=== PATIENT | female | born 1975 | race Caucasian/White ===

== ENCOUNTER 2018-06-15 09:43 | Day surgery (SDC) | payer BC ==
[2018-06-13 16:43] LABS: CLARITY,URINE CLEAR (Clear); COLOR,URINE YELLOW (Yellow); GLUCOSE, URINE NEGATIVE (Neg); KETONES,URINE NEGATIVE (Neg); LEUKOCYTE ESTERASE ,URINE NEGATIVE (Neg); NITRITES, URINE NEGATIVE (Neg); OCCULT BLOOD,URINE TRACE-LYSED (Neg); PH,URINE 6.5 (4.8-8.0); PROTEIN,URINE NEGATIVE (Neg); UROBILINOGEN,URINE 0.2 E.U/dL (0.2-1.0)
[2018-06-13 16:49] LABS: HEMOGLOBIN A1C 7.2 % (4.5-6.2)
[2018-06-13 16:57] LABS: ALBUMIN 3.8 G/DL (3.4-5.0); ALBUMIN/GLOBULIN RATIO 1.2 (1.1-1.5); ALKALINE PHOSPHATASE 128 IU/L (46-116); BLOOD UREA NITROGEN 10 MG/DL (7-18); BUN/CREATININE RATIO 14.3 (6.6-38.0); CALCIUM 9.7 MG/DL (8.5-10.1); CHLORIDE 102 MMOL/L (99-107); PRE OP ALT 43 U/L (30-65); PRE OP ANION GAP 9 (8-16); PRE OP AST 19 U/L (10-37); PRE OP BILIRUB, TOTAL 0.2 MG/DL (0.0-1.0); PRE OP GLUCOSE 163 MG/DL (70-104); PRE OP POTASSIUM 3.7 MMOL/L (3.4-5.1); PRE OP SODIUM 140 MMOL/L (135-145); TOTAL CARBON DIOXIDE 28.6 MMOL/L (24-32); eGFR > 90 ML/MIN
[2018-06-13 17:04] LABS: UA COLLECTION TYPE CLN CATCH MIDSTREAM
[2018-06-13 17:04] LABS: PRE OP PROTIME 10.1 SECONDS (9.0-12.0)
[2018-06-13 17:05] LABS: BACTERIA,URINE 1+ /HPF (Neg); RBC,URINE 0-2 /HPF (0-2); SQUAMOUS EPITHELIAL CELL,UR MANY /LPF (FEW); WBC,URINE 0-4 /HPF (0-4)
[2018-06-13 17:26] LABS: HCG SERUM QL NEGATIVE
[2018-06-14 07:36] LABS: BASOPHILS # (AUTO) 0.1 X10'3 (0-0.2); BASOPHILS % (AUTO) 0.5 % (0-1); EOSINOPHILS # (AUTO) 0.3 X10'3 (0-0.9); EOSINOPHILS % (AUTO) 2.5 % (0-6); LYMPHOCYTES # (AUTO) 3.8 X10'3 (1.1-4.8); LYMPHOCYTES % (AUTO) 31.2 % (21-51); MEAN CORPUSCULAR HEMOGLOBIN 28.5 PG (27.0-31.0); MEAN CORPUSCULAR VOLUME 86.3 FL (78-98); MEAN PLATELET VOLUME 9.5 FL (7.4-10.4); MONOCYTES # (AUTO) 0.6 X10'3 (0-0.9); MONOCYTES % (AUTO) 4.7 % (2-12); NEUTROPHILS # (AUTO) 7.4 X10'3 (1.8-7.7); NEUTROPHILS % (AUTO) 61.1 % (42-75); PRE OP HEMATOCRIT 40.1 % (35.0-45.0); PRE OP HEMOGLOBIN 13.2 g/dL (12.0-16.0); PRE OP PLATELET COUNT 307 X10'3 (140-440); RED BLOOD COUNT 4.65 X10'6 (4.20-5.60); RED CELL DISTRIBUTION WIDTH 14.6 % (11.5-14.5)
[~2018-06-15] VITALS: Ht 162.6 cm; Wt 100.6 kg
[2018-06-15] VITALS (18 sets, daily range): BP systolic 129–160; BP diastolic 70–94
[~2018-06-15 09:43] MED LIST: CYCL-1 PO; HYDR-3964 PO; IBUP-1985 PO; METF-950 PO; ROPI1TAB4 PO; SUMA100T16 PO; ceFOXitin 2 GM ADDVANTGE BAG 50 ML IV ONE; famotidine 20mg tablet PO ONE
[2018-06-15] MEDS ORDERED: ringers solution, lacted 1,000 ML IV SCH ×2 (10:04→13:51)
[2018-06-15] MEDS ORDERED: morphine 4 MG/ML inj SYRINge IV PRN ×4 (10:05→13:55)
[2018-06-15] MEDS ORDERED: ondansetron/PF 4mg/2ml inj IV PRN ×3 (10:05→14:55)
[2018-06-15] MEDS ORDERED: meperidine/PF 25mg/ml syringe IV PRN ×6 (10:05→13:55)
[2018-06-15] MEDS ORDERED: proCHLORperazine 10 MG/2 ml inj IV PRN ×2 (10:05→13:55)
[2018-06-15] MEDS: ringers solution, lacted 1,000 ML IV SCH ×4 (10:18→20:11)
[2018-06-15] MEDS ORDERED: epiNEPHrine 1 mg/ml inj ONE (11:53)
[2018-06-15] MEDS ORDERED: clindamycin phosphate 40gm vag cream ONE (11:53)
[2018-06-15] MEDS ORDERED: BUPIVAcaine/PF 2.5mg/ml (0.25%) 10ml vial ONE ×2 (11:54)
[2018-06-15] MEDS ORDERED: vasoPRESSIN 20 units/ml inj. ONE (11:54)
[2018-06-15] MEDS ORDERED: neomy sulf/polymyxin B sulf. GU irrigation 1ml amp IR ONE (11:54)
[2018-06-15] MEDS ORDERED: sevoflurane 250ml liquid IH ONE (13:11)
[2018-06-15] MEDS ORDERED: midazolam 2 mg/2 ml injection ONE (13:15)
[2018-06-15] MEDS ORDERED: fentaNYL /PF 50mcg/ml 5ml ampule ONE (13:15)
[2018-06-15] MEDS ORDERED: propofol inj 20 ML IV ONE (13:24)
[2018-06-15] MEDS ORDERED: rocuronium 10mg/ml inj IV ONE (13:24)
[2018-06-15] MEDS ORDERED: ketamine 50mg/5ml syringe ONE (13:30)
[2018-06-15] MEDS ORDERED: neostigmine methylsulfate 1 MG/ML 10ml vial ONE (14:37)
[2018-06-15] MEDS ORDERED: glycopyrrolate 0.2mg/ml inj ONE (14:37)
[2018-06-15] MEDS ORDERED: HYDROcodone/acetaminophen 10/325mg tab PO PRN (14:55)
[2018-06-15] MEDS ORDERED: temazepam 15mg capsule PO PRN (14:55)
[2018-06-15] MEDS ORDERED: normal saline 500ml IV soln 500 ML IV PRN (14:55)
[2018-06-15] MEDS ORDERED: metoclopramide 5 mg/ml inj IV PRN (14:55)
[2018-06-15] MEDS ORDERED: diphenhydrAMINE 50 mg/ml inj IV PRN (14:55)
[2018-06-15] MEDS ORDERED: LORazepam 2 mg/ml vial IV PRN (14:55)
[2018-06-15] MEDS ORDERED: magnesium hydroxide 30ml (MOM) UD suspension PO PRN (14:55)
[2018-06-15] MEDS ORDERED: HYDROcodone/acetaminophen 5mg/325mg tablet PO PRN (16:05)
[2018-06-15] MEDS ORDERED: ibuprofen 200mg tablet PO PRN (16:05)
[2018-06-15] MEDS ORDERED: SUMAtriptan 25 MG tablet PO PRN (16:05)
[2018-06-15] MEDS: docusate sod 100mg capsule PO SCH (20:08)
[2018-06-15] MEDS: metFORMIN 500mg tablet PO SCH (20:08)
[2018-06-15] MEDS ORDERED: ROPINIRole 1mg tablet PO SCH (21:00)
[2018-06-15] MEDS ORDERED: cyclobenzaprine 10mg tablet PO SCH (21:00)
[2018-06-15] MEDS: ketorolac trometh. 30mg/ml inj. IV PRN (22:54)
[2018-06-16] VITALS: BP 134/81
[2018-06-16] MEDS: HYDROcodone/acetaminophen 10/325mg tab PO PRN ×3 (03:13→15:18)
[2018-06-16] MEDS: ketorolac trometh. 30mg/ml inj. IV PRN ×2 (05:25→12:11)
[2018-06-16 05:49] LABS: BASOPHILS % (AUTO) 0.2 % (0-1); EOSINOPHILS % (AUTO) 0 % (0-6); HEMATOCRIT 36.7 % (35.0-45.0); HEMOGLOBIN 12.2 g/dl (12.0-16.0); LYMPHOCYTES # (AUTO) 2.6 X10'3 (1.1-4.8); LYMPHOCYTES % (AUTO) 14.3 % (21-51); MEAN CORPUSCULAR HEMOGLOBIN 28.3 PG (27.0-31.0); MEAN CORPUSCULAR HGB CONC 33.3 % (33.0-36.5); MEAN CORPUSCULAR VOLUME 84.9 FL (78-98); MEAN PLATELET VOLUME 9.3 FL (7.4-10.4); MONOCYTES # (AUTO) 1.3 X10'3 (0-0.9); MONOCYTES % (AUTO) 7.2 % (2-12); NEUTROPHILS # (AUTO) 14.2 X10'3 (1.8-7.7); NEUTROPHILS % (AUTO) 78.3 % (42-75); PLATELET COUNT 314 X10'3 (140-440); RED BLOOD COUNT 4.32 X10'6 (4.20-5.60); RED CELL DISTRIBUTION WIDTH 14.1 % (11.5-14.5); WHITE BLOOD COUNT 18.1 X10'3 (4.5-11.0)
[2018-06-16 06:12] LABS: ALBUMIN 3.1 G/DL (3.4-5.0); ANION GAP 12 (8-16); BLOOD UREA NITROGEN 6 MG/DL (7-18); BUN/CREATININE RATIO 9.7 (6.6-38.0); CALCIUM 8.5 MG/DL (8.5-10.1); CHLORIDE 101 MMOL/L (99-107); CREATININE 0.62 MG/DL (0.40-0.90); GLUCOSE 120 MG/DL (70-104); POTASSIUM 3.4 MMOL/L (3.5-5.1); SODIUM 137 MMOL/L (135-145); TOTAL CARBON DIOXIDE 24.1 MMOL/L (24-32); eGFR > 90 ML/MIN
[2018-06-16 07:00] VITALS: BP 96/57
[2018-06-16] MEDS: docusate sod 100mg capsule PO SCH (07:38)
[2018-06-16] MEDS: metFORMIN 500mg tablet PO SCH (07:38)
[2018-06-16] MEDS ORDERED: enoxaparin 40mg/0.4ml syringe SQ SCH (08:00)
[2018-06-16 11:00] VITALS: BP 109/69
== END 2018-06-16 15:25 | disposition home or self-care (01) ==
LOC: PAS 09:43 → SUR 3N 17:21 → PAS 06-16 15:25
PROVIDERS: ATTEND Obstetrics & Gynecology Obstetrics
DX: N72 Inflammatory disease of cervix uteri (principal); N85.8 Other specified noninflammatory disorders of uterus; N73.6 Female pelvic peritoneal adhesions (postinfective); N92.1 Excessive and frequent menstruation with irregular cycle; N94.6 Dysmenorrhea, unspecified; E11.9 Type 2 diabetes mellitus without complications; G89.29 Other chronic pain; G43.909 Migraine, unspecified, not intractable, without status migrainosus; E66.9 Obesity, unspecified; I10 Essential (primary) hypertension; M19.90 Unspecified osteoarthritis, unspecified site; Z72.89 Other problems related to lifestyle; Z68.38 Body mass index [BMI] 38.0-38.9, adult; Z90.89 Acquired absence of other organs; Z87.891 Personal history of nicotine dependence; Z79.1 Long term (current) use of non-steroidal anti-inflammatories (NSAID); Z79.84 Long term (current) use of oral hypoglycemic drugs; Z79.891 Long term (current) use of opiate analgesic; Z79.899 Other long term (current) drug therapy; Z98.890 Other specified postprocedural states
CPT/HCPCS: 36415; 58552; 71046; 80048; 80053; 81001; 82948; 83036; 84703; 85025; 85610; 85730; 86885; 86900; 86901; 87070; 93005; J0171; J0694; J1885; J2060; J2175; J2250; J2270; J2704; J2710; J3010; J3490; J7030; J7120; A4315; A7000; G0378; J1650